=== PATIENT | male | born 1990 | race Caucasian/White ===

== ENCOUNTER 2020-01-26 09:26 | Emergency (ER) | payer SELFPAY ==
[~2020-01-26] VITALS: Ht 182 cm; Wt 98.5 kg
--- NOTE | 2020-01-26 09:35 | ED Abdominal Pain ---
General Chief Complaint: Abdominal/GI Problems Stated Complaint: APPENDICITS History of Present Illness Date Seen by Provider: Jan 26, 2020 Time Seen by Provider: 09:35 Initial Comments 29-year-old male presents with right lower quadrant pain. Patient reports his been going on and off for about a week and a half. The pain is periumbilical and out of the right lower quadrant. Nothing seems to make it worse or better. He reports the pain was signally worse yesterday little bit better today. He reports that the pain gets worse of you push on his abdomen ago. He has no nausea vomiting or urinary symptoms. He was seen by his primary care provider who is concerned about appendicitis and sent him to the ER for further evaluation. Allergies and Home Medications Allergies Coded Allergies: Pertussis Vaccines (Verified Allergy, Unknown, 01/26/20) Patient Home Medication List Home Medication List Reviewed: Yes Review of Systems Review of Systems Constitutional: No chills, No fever EENTM: No Symptoms Reported Respiratory: Denies Cough, Denies Shortness of Air Cardiovascular: Denies Chest Pain, Denies Lightheadedness, Denies Palpitations Gastrointestinal: Abdominal Pain; Denies Diarrhea, Denies Nausea, Denies Vomiting Genitourinary: No Symptoms Reported Musculoskeletal: no symptoms reported Skin: no symptoms reported Psychiatric/Neurological: No Symptoms Reported Endocrine: No Symptoms Reported Past Ajykvdo-Dlbegt-Bnxikd Hx Past Med/Social Hx: Reviewed Nursing Past Med/Soc Hx Patient Social History Recent Foreign Travel: No Contact w/Someone Who Travel: No Physical Exam Vital Signs Vital Signs - First Documented 01/26/20 09:34 Temp 36.6 Resp 18 B/P (MAP) 156/100 (118) Pulse Ox 98 Capillary Refill : Height/Weight/BMI Height: '" Weight: lbs. oz. kg; BMI Method: General Appearance: WD/WN, no apparent distress Neck: full range of motion, supple Respiratory: chest non-tender, lungs clear Cardiovascular: normal peripheral pulses, regular rate, rhythm Gastrointestinal: soft, rebound (right lower quadrant), tenderness (periumbilical, right lower quadrant) Extremities: normal range of motion, non-tender Neurologic/Psychiatric: alert, normal mood/affect, oriented x 3 Skin: normal color, warm/dry Focused Exam Lactate Level 01/26/20 09:45: Lactic Acid Level 1.40 Lactic Acid Level Laboratory Tests Test 01/26/20 09:45 Lactic Acid Level 1.40 MMOL/L (0.50-2.00) Progress/Results/Core Measures Results/Orders Lab Results Laboratory Tests Test 01/26/20 09:45 01/26/20 10:38 Range/Units White Blood Count 6.0 4.3-11.0 10^3/uL Red Blood Count 4.91 4.35-5.85 10^6/uL Hemoglobin 14.8 13.3-17.7 G/DL Hematocrit 42 40-54 % Mean Corpuscular Volume 86 80-99 FL Mean Corpuscular Hemoglobin 30 25-34 PG Mean Corpuscular Hemoglobin Concent 35 32-36 G/DL Red Cell Distribution Width 13.2 10.0-14.5 % Platelet Count 279 130-400 10^3/uL Mean Platelet Volume 10.6 H 7.4-10.4 FL Neutrophils (%) (Auto) 56 42-75 % Lymphocytes (%) (Auto) 34 12-44 % Monocytes (%) (Auto) 7 0-12 % Eosinophils (%) (Auto) 3 0-10 % Basophils (%) (Auto) 0 0-10 % Neutrophils # (Auto) 3.4 1.8-7.8 X 10^3 Lymphocytes # (Auto) 2.1 1.0-4.0 X 10^3 Monocytes # (Auto) 0.4 0.0-1.0 X 10^3 Eosinophils # (Auto) 0.2 0.0-0.3 10^3/uL Basophils # (Auto) 0.0 0.0-0.1 10^3/uL Sodium Level 137 135-145 MMOL/L Potassium Level 4.1 3.6-5.0 MMOL/L Chloride Level 108 H 98-107 MMOL/L Carbon Dioxide Level 23 21-32 MMOL/L Anion Gap 6 5-14 MMOL/L Blood Urea Nitrogen 16 7-18 MG/DL Creatinine 0.95 0.60-1.30 MG/DL Estimat Glomerular Filtration Rate > 60 BUN/Creatinine Ratio 17 Glucose Level 102 70-105 MG/DL Lactic Acid Level 1.40 0.50-2.00 MMOL/L Calcium Level 8.8 8.5-10.1 MG/DL Corrected Calcium 8.6 8.5-10.1 MG/DL Total Bilirubin 0.4 0.1-1.0 MG/DL Aspartate Amino Transf (AST/SGOT) 20 5-34 U/L Alanine Aminotransferase (ALT/SGPT) 31 0-55 U/L Alkaline Phosphatase 89 40-136 U/L C-Reactive Protein High Sensitivity 0.18 0.00-0.50 MG/DL Total Protein 6.8 6.4-8.2 GM/DL Albumin 4.3 3.2-4.5 GM/DL Lipase 17 8-78 U/L Urine Color YELLOW Urine Clarity CLEAR Urine pH 6.5 5-9 Urine Specific Drybranch 1.020 1.016-1.022 Urine Protein NEGATIVE NEGATIVE Urine Glucose (UA) NEGATIVE NEGATIVE Urine Ketones NEGATIVE NEGATIVE Urine Nitrite NEGATIVE NEGATIVE Urine Bilirubin NEGATIVE NEGATIVE Urine Urobilinogen 1 < = 1.0 MG/DL Urine Leukocyte Esterase NEGATIVE NEGATIVE Urine RBC (Auto) NEGATIVE NEGATIVE Urine RBC NONE /HPF Urine WBC RARE /HPF Urine Squamous Epithelial Cells RARE /HPF Urine Crystals NONE /LPF Urine Bacteria NEGATIVE /HPF Urine Casts NONE /LPF Urine Mucus NEGATIVE /LPF Urine Culture Indicated NO My Orders Orders - MAHER,KATHERYN L DO Cbc With Automated Diff (01/26/20 09:39) Comprehensive Metabolic Panel (01/26/20 09:39) Hs C Reactive Protein (01/26/20 09:39) Lactic Acid Analyzer (01/26/20 09:39) Lipase (01/26/20 09:39) Ua Culture If Indicated (01/26/20 09:39) Acute Abd Series (01/26/20 09:39) Vital Signs/I&O 01/26/20 09:34 Temp 36.6 Resp 18 B/P (MAP) 156/100 (118) Pulse Ox 98 Progress Progress Note : Time: 11:06 Progress Note Reviewed normal labs with patient along with a normal urine and x-ray. We discussed further evaluation with CAT scan versus watchful waiting. At this time patient would prefer to not get a CAT scan and will return if his symptoms continue to worsen or if he gets sicker. I do feel that this is appropriate since his symptoms been going on for about a week week and a half with no change in WBC, CRP or urine makes it very unlikely that it is appendicitis. Patient is stable, will be discharged home. He will return to the ER as needed or follow-up with his primary care provider Diagnostic Imaging Diagonstic Imaging: Xray Plain Films/CT/US/NM/MRI: abdomen Comments [facility]. [place], [place] NAME: KYLAH TAMEZ [facility] REC#: [id number] PT STATUS: REG ER : 1990 PHYSICIAN: KATHERYN MAHER DO ADMIT DATE: 01/26/20/ER Draft Date of Exam:01/26/20 ACUTE ABD SERIES EXAMINATION: Acute abdomen series at 1006 AM INDICATION: Abdominal pain There are no prior studies available for comparison. The accompanying erect PA chest shows the heart size to within normal limits. The lungs are clear. There is no sign of a pneumoperitoneum. Supine and erect views of the abdomen were obtained. There is some gas in both the large and small bowel in a nonspecific fashion. There is no evidence for bowel obstruction. There is no mass, organomegaly or pathological calcification evident. The osseous structures are intact. IMPRESSION: The bowel gas pattern is nonspecific. There is no acute abnormality noted. Departure Impression Primary Impression: Right lower quadrant pain Disposition: 01 HOME, SELF-CARE Condition: Stable Departure-Patient Inst. Patient Instructions: Severe Abdominal Pain, Adult (DC) Add. Discharge Instructions: Follow-up with your primary care provider as needed Return to the ER if symptoms significantly worsen for further evaluation All discharge instructions reviewed with patient and/or family. Voiced understanding. KATHERYN MAHER DO Jan 26, 2020 09:35
[2020-01-26] MEDS ORDERED: LEVO5TAB28 PO (09:41)
[2020-01-26 10:15] LABS: BASOPHILS % (AUTO) 0 % (0-10); EOSINOPHILS # (AUTO) 0.2 10^3/uL (0.0-0.3); EOSINOPHILS % (AUTO) 3 % (0-10); HEMATOCRIT 42 % (40-54); HEMOGLOBIN 14.8 G/DL (13.3-17.7); LYMPHOCYTES # (AUTO) 2.1 X 10^3 (1.0-4.0); LYMPHOCYTES % (AUTO) 34 % (12-44); MEAN CORPUSCULAR HEMOGLOBIN 30 PG (25-34); MEAN CORPUSCULAR HGB CONC 35 G/DL (32-36); MEAN CORPUSCULAR VOLUME 86 FL (80-99); MEAN PLATELET VOLUME 10.6 FL (7.4-10.4); MONOCYTES # (AUTO) 0.4 X 10^3 (0.0-1.0); MONOCYTES % (AUTO) 7 % (0-12); NEUTROPHILS # (AUTO) 3.4 X 10^3 (1.8-7.8); NEUTROPHILS % (AUTO) 56 % (42-75); PLATELET COUNT 279 10^3/uL (130-400); RED CELL DISTRIBUTION WIDTH 13.2 % (10.0-14.5)
--- NOTE | 2020-01-26 10:16 | Diagnostic Imaging Report ---
EXAMINATION: Acute abdomen series at 1006 AM INDICATION: Abdominal pain There are no prior studies available for comparison. The accompanying erect PA chest shows the heart size to within normal limits. The lungs are clear. There is no sign of a pneumoperitoneum. Supine and erect views of the abdomen were obtained. There is some gas in both the large and small bowel in a nonspecific fashion. There is no evidence for bowel obstruction. There is no mass, organomegaly or pathological calcification evident. The osseous structures are intact. IMPRESSION: The bowel gas pattern is nonspecific. There is no acute abnormality noted. Dictated by: Dictated on workstation # [id number]
[2020-01-26 10:39] LABS: ALANINE AMINOTRANSFERASE 31 U/L (0-55); ALBUMIN 4.3 GM/DL (3.2-4.5); ALKALINE PHOSPHATASE 89 U/L (40-136); BILIRUBIN,TOTAL 0.4 MG/DL (0.1-1.0); BUN/CREATININE RATIO 17; CALCIUM 8.8 MG/DL (8.5-10.1); CARBON DIOXIDE 23 MMOL/L (21-32); CHLORIDE 108 MMOL/L (98-107); CREATININE SERUM 0.95 MG/DL (0.60-1.30); GFR ESTIMATED > 60; GLUCOSE 102 MG/DL (70-105); LIPASE 17 U/L (8-78); POTASSIUM 4.1 MMOL/L (3.6-5.0); SODIUM 137 MMOL/L (135-145); TOTAL PROTEIN 6.8 GM/DL (6.4-8.2)
[2020-01-26 10:56] LABS: CLARITY,URINE CLEAR; COLOR,URINE YELLOW; PH,URINE 6.5 (5-9)
[2020-01-26 10:57] LABS: BILIRUBIN,URINE NEGATIVE (NEGATIVE); GLUCOSE, URINE (UA) NEGATIVE (NEGATIVE); KETONES,URINE NEGATIVE (NEGATIVE); LEUKOCYTE ESTERASE ,URINE NEGATIVE (NEGATIVE); NITRITE,URINE NEGATIVE (NEGATIVE); PROTEIN,URINE NEGATIVE (NEGATIVE)
[2020-01-26 10:58] LABS: BACTERIA,URINE NEGATIVE /HPF; SQUAMOUS EPITHELIAL CELL,UR RARE /HPF; WBC,URINE RARE /HPF
[2020-01-26 11:40] VITALS: BP 127/89
== END 2020-01-26 11:40 | disposition home or self-care (01) ==
LOC: ER 09:31
DX: R10.31 Right lower quadrant pain (principal); Z88.7 Allergy status to serum and vaccine
CPT/HCPCS: 36415; 74022; 80053; 81000; 83605; 83690; 85025; 86141

== ENCOUNTER 2023-03-08 08:09 | Emergency (ER) | payer SELFPAY ==
[~2023-03-08] VITALS: Ht 182.9 cm; Wt 88.5 kg
[~2023-03-08 08:09] MED LIST: LEVO5TAB28 PO
[2023-03-08] MEDS ORDERED: ORPHENADRINE 60 MG/2 ML AMP (ED ONLY) IM ONE (11:15)
[2023-03-08] MEDS ORDERED: KETOROLAC INJ 30 MG/ML VIAL IM ONE (11:15)
[2023-03-08] MEDS ORDERED: HYDROcodone/ACETAMINOPHEN 5 MG/325 MG TABLET PO ONE (11:15)
[2023-03-08] MEDS ORDERED: KETO10TA PO (11:16)
[2023-03-08] MEDS ORDERED: METH-731 PO (11:16)
[2023-03-08] MEDS ORDERED: NF-METHYLP PO (11:16)
--- NOTE | 2023-03-08 11:18 | ED Back Pain ---
General Chief Complaint: Back Problems Stated Complaint: BACK PAIN Nursing Triage Note: PT AMBULATE TO TRIAGE WITHOUT DIFFICULTY WITH C/O LOWER BACK PAIN STARTING YESTERDAY. PT DENIES INJURY. PT REPORTS TAKING TYLENOL FOR PAIN WITHOUT RELIEF. Source of Information: Patient Exam Limitations: No Limitations History of Present Illness Date Seen by Provider: Mar 08, 2023 Time Seen by Provider: 11:13 Initial Comments Patient is a 32-year-old male who presents ED with lower back pain. This started yesterday. Patient was walking in his house felt a sharp pain in his l ower back. Started belting numbness and tingling into his haile. Similar type occurrence 2 years ago while jumping up on a trailer. Pain lasted for 2 weeks after going to a chiropractor and massage. Patient states pain was worse this morning when he tried to get up. Seem to notice improvement when he walks. Has been taken Tylenol with some improvement. Denies of any bowel or urine incontinence, saddle paresthesia. He feels like his right leg is somewhat weaker than the left but seems to improve when he gets up and moves around. Patient denies of any falls. Patient works in construction. Denies fever, chills, drug use, bone disorder, history of cancer, urinary symptoms, chest pain, shortness of breath, abdominal pain Allergies and Home Medications Allergies Coded Allergies: Pertussis Vaccines (Verified Allergy, Unknown, 01/26/20) Patient Home Medication List Home Medication List Reviewed: Yes Ketorolac Tromethamine (Ketorolac Tromethamine) 10 Mg Tablet, 10 MG PO TID Prescribed by: OLINDA RENTERIA on 03/08/23 1116 Levocetirizine Dihydrochloride (Xyzal) 5 Mg Tablet, 5 MG PO, (Reported) Entered as Reported by: BRIGHT ESPAÑA on 01/26/20 0941 Methocarbamol (Methocarbamol) 500 Mg Tablet, 500 MG PO Q6-8HR Prescribed by: OLINDA RENTERIA on 03/08/23 1116 Methylprednisolone (Medrol Dose pack) 4 Mg Tab, 4 MG PO UD Prescribed by: OLINDA RENTERIA on 03/08/23 1116 Review of Systems Constitutional: No chills, No diaphoresis EENTM: No ear pain, No blurred vision, No double vision Respiratory: No cough, No dyspnea on exertion Cardiovascular: No chest pain Gastrointestinal: No abdominal pain, No diarrhea, No nausea, No other Genitourinary: No decreased output, No discharge Musculoskeletal: back pain; No joint pain Skin: No change in color, No change in hair/nails All Other Systems Reviewed Negative Unless Noted: Yes Past Pkdfqct-Qsezkl-Zhitll Hx Patient Social History Tobacco Use?: No Smoking Status: Never a Smoker Smokeless Tobacco Frequency: Never a User Use of E-Cig and/or Vaping dev: No Substance use?: No Alcohol Use?: Yes Alcohol Frequency: Once in a while Pt feels they are or have been: No Seasonal Allergies Seasonal Allergies: No Past Medical History Surgeries: No Respiratory: No Cardiac: No Neurological: No Genitourinary: No Gastrointestinal: No Musculoskeletal: No Endocrine: No HEENT: No Cancer: No Psychosocial: No Integumentary: No Blood Disorders: No Physical Exam Vital Signs Vital Signs - First Documented 03/08/23 09:27 Temp 36.8 Pulse 78 Resp 17 B/P (MAP) 134/84 (101) O2 Delivery Room Air Capillary Refill : Less Than 3 Seconds Height, Weight, BMI Height: '" Weight: lbs. oz. kg; 26.00 BMI Method: General Appearance: No Apparent Distress, WD/WN HEENT: PERRL/EOMI, TMs Normal, Normal ENT Inspection, Pharynx Normal Neck: Full Range of Motion, Normal Inspection, Non Tender, Supple Cardiovascular: Regular Rate, Rhythm, No Edema, No Gallop, No JVD, No Murmur Respiratory: Chest Non Tender, Lungs Clear, Normal Breath Sounds, No Accessory Muscle Use, No Respiratory Distress Gastrointestinal: Normal Bowel Sounds, No Organomegaly, No Pulsatile Mass, Non Tender, Soft Back: Vertebral Tenderness (Lumbar midline tenderness. Normal range of motion.) Extremity: Normal Capillary Refill, Normal Inspection, Normal Range of Motion, Non Tender, Other (Strength lower extremities with knee flexion extension 5 out of 5. 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 Denies of any specific falls. Similar type pain in the past that improved after 2 weeks. Works in construction. Differential diagnosis low back muscle strain, degenerative disc disease, sciatica. On exam he has lumbar midline tenderness. Pain with movement but does have adequate range of motion. No weakness in the lower extremities. Neurovascular intact. Reports some numbness into his right haile. Concerning for bulging disc versus degenerative disc disease with radiculopathy. Discussed x-ray and CT scan may be limited. Further evaluation with MRI would evaluate the muscle tissue, disc and spinal cord in more detail. Patient has no alarming red flag findings suggesting emergent MRI at this time. No risk factors for epidural abscess. He is afebrile. No drug use. we agreed to not get a x-ray or CT scan at this time. Patient was given a dose of Toradol, Norflex and hydrocodone. We will continue with conservative treatment. Would benefit with physical therapy, rest and restrictions for the next few weeks. Provided work note. If any worsening symptoms such as bowel or urine incontinence saddle paresthesia, lower extremity muscle weakness to return back to ED. Impression Primary Impression: Back pain Disposition: 01 HOME, SELF-CARE Condition: Stable Departure-Patient Inst. Decision time for Depature: 11:15 Referrals: DREAD CASTILLO MD (PCP/Family) Primary Care Physician Patient Instructions: Low Back Pain (DC) Add. Discharge Instructions: At this time take Robaxin for muscle spasming, ketorolac for pain and a Medrol Dosepak to help with swelling. Recommend rest. Avoid lifting greater than 10 pounds for the next 2 weeks. Stretching. Follow-up with your primary care physician for further evaluation. If any worsening symptoms such as loss of lower extremity motor function, bowel or urine incontinence to return back to ED. All discharge instructions reviewed with patient and/or family. Voiced und erstanding. Scripts Ketorolac Tromethamine (Ketorolac Tromethamine) 10 Mg Tablet 10 MG PO TID for Back Pain, #15 TAB Prov: JYOTI KEENE 03/08/23 Methylprednisolone (Medrol Dose pack) 4 Mg Tab 4 MG PO UD for 6 Days, #21 TAB as directed per dose pack Prov: JYOTI KEENE 03/08/23 Methocarbamol (Methocarbamol) 500 Mg Tablet 500 MG PO Q6-8HR for Back Pain, #20 TAB Prov: JYOTI KEENE 03/08/23 Work/School Note: Work Release Form Date Seen in the Emergency Department: Mar 08, 2023 Return to Work: Mar 12, 2023 JYOTI KEENE Mar 08, 2023 11:18
[2023-03-08 11:38] VITALS: BP 134/79
== END 2023-03-08 11:38 | disposition home or self-care (01) ==
LOC: EDUNIT# 08:09 → ER 08:11
DX: M54.50 Low back pain, unspecified (principal); R20.0 Anesthesia of skin
CPT/HCPCS: 99284